=== PATIENT | female | born 2000 | race Caucasian/White ===

== ENCOUNTER 2023-12-24 08:27 | Day surgery (SDC) | payer MEDICAID ==
[~2023-12-24 08:27] MED LIST: Ferumoxytol (ERSD) 510 MG in 0.9 % Sodium Chloride 150 ML IVPB SCH; diphenhydrAMINE 50 MG/ML VIAL IVP PRN
[2023-12-24 08:58] VITALS: BP 138/76; TEMP 98.1
[2023-12-27] MEDS ORDERED: diphenhydrAMINE 50 MG/ML VIAL IVP PRN (00:01)
[2023-12-27] MEDS ORDERED: Ferumoxytol (ERSD) 510 MG in 0.9 % Sodium Chloride 150 ML IVPB SCH (00:01)
== END 2023-12-24 09:10 | disposition short-term general hospital (02) ==
LOC: ONC/OP 08:27
PROVIDERS: ATTEND Family Medicine
DX: O99.019 Anemia complicating pregnancy, unspecified trimester (principal); Z3A.00 Weeks of gestation of pregnancy not specified; Z88.1 Allergy status to other antibiotic agents
CPT/HCPCS: 99211; G0463; Q0139